=== PATIENT | female | born 1970 | race Caucasian/White ===

== ENCOUNTER 2019-01-17 00:20 | Emergency (ER) | payer OTHER, MEDICAID ==
[~2019-01-17] VITALS: Ht 162.6 cm; Wt 56.2 kg
[2019-01-17] MEDS ORDERED: MORPHINE SULFATE 4 MG/ML SYR/VIAL IV ONE (01:45)
[2019-01-17] MEDS ORDERED: ONDANSETRON HCL 4 MG/2 ML VIAL IV ONE (01:45)
[2019-01-17 03:00] VITALS: BP 178/68
== END 2019-01-17 03:45 | disposition home or self-care (01) ==
LOC: EDBD 00:20 → ER 00:29
DX: G44.309 Post-traumatic headache, unspecified, not intractable (principal); Z88.0 Allergy status to penicillin
CPT/HCPCS: 70450; 72125; 96374; 96375; 99284; J2270; J2405

== ENCOUNTER 2024-08-19 19:45 | Emergency (ER) | payer OTHER, MEDICAID ==
[~2024-08-19] VITALS: Ht 160 cm; Wt 56.4 kg
[2024-08-19] MEDS: KETOROLAC TROMETH 60MG/2ML VIAL IM ONE (21:13)
[2024-08-19] MEDS: HYDROcodone-ACET 5/325MG TAB PO ONE (21:13)
[2024-08-19 21:19] VITALS: BP 156/82; PULSE 77; RESP 17; TEMP 98.7; O2SAT 97
--- NOTE | 2024-08-19 21:21 | DVH ---
EXAMINATIONS: 3 views of the left ankle 3 views of the left foot CLINICAL HISTORY: Trauma/twist COMPARISON: None Findings and impression: No grossly displaced fractures, dislocations or bony destructive changes are evident on the provided views. The ankle mortise appears relatively intact. Calcaneal spurring noted. If the patient has continued symptoms clinically suspicious for radiographically occult fracture, fol low-up radiographs could be obtained in 7-10 days time.
--- NOTE | 2024-08-19 21:29 | ED.PDOC ---
Musculoskeletal HPI Comments 54-year-old female who came to the emergency room for left ankle and foot pain. Patient was walking up the stairs earlier, when she accidentally twisted her left ankle/foot. Denies any other injuries. Noted swelling over the left ankle. Patient states she can not bear weight. Chief Complaint: Lower Extremity Time Seen by MD: 21:27 Reviewed Notes: Nurses Notes Allergies: Coded Allergies: Codeine (Verified Allergy, Unknown, 08/19/24) Penicillins (Verified Allergy, Unknown, 01/17/19) Information Source: Patient Mode of Arrival: Wheelchair Location: Left Extremity Location: Ankle, Foot Timing: Hours Severity: Mild Able to Move Extremity: Yes Bear Weight: Limited Pain: Moderate Hand Dominance: Right Mechanism: Twisting Circumstances: Accident Onset of Symptoms: After Trauma Symptoms: Swelling, Pain DVT Risk Factors: NONE Associated signs and symptoms: Ankle pain (Left) Past Medical History PAST MEDICAL HISTORY: Denies Surgical History: Denies all surgeries [employer] 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 Family History Family History: Reviewed,noncontributory to illness Social History Smoker: Non-Smoker Alcohol: Denies ETOH Use Drugs: Denies Drug Use Lives In: Home Constitutional: denies: chills, diaphoresis, fatigue, fever, malaise, sweats, weakness, others EENTM: denies: blurred vision, double vision, ear bleeding, ear discharge, ear drainage, ear pain, ear ringing, eye pain, eye redness, hearing loss, mouth pain, mouth swelling, nasal discharge, nose bleeding, nose congestion, nose pain, photophobia, tearing, throat pain, throat swelling, voice changes, others Respiratory: denies: cough, hemoptysis, orthopnea, SOB at rest, shortness of breath, SOB with excertion, stridor, wheezing, others Cardiovascular: denies: chest pain, dizzy spells, diaphoresis, Dyspnea on exertion, edema, irregular heart beat, left arm pain, lightheadedness, palpi tations, PND, syncope, others Gastrointestinal: denies: abdomen distended, abdominal pain, blood streaked bowels, constipated, diarrhea, dysphagia, difficulty swallowing, hematemesis, melena, nausea, poor appetite, poor fluid intake, rectal bleeding, rectal pain, vomiting, others Genitourinary: denies: abnormal vagina bleeding, burning, dyspareunia, dysuria, flank pain, frequency, hematuria, incontinence, pain, , vagina discharge, urgency, others Neurological: denies: dizziness, fainting, headache, left sided numbness, left sided weakness, numbness, paresthesia, pre-existing deficit, right sided numbness, right sided weakness, seizure, speech problems, tingling, tremors, weakness, others Musculoskeletal: reports: joint pain (Left ankle, left foot), joint swelling (Left ankle); denies: back pain, gout, muscle pain, muscle stiffness, neck pain, others Integumetry: denies: bruises, change in color, change in hair/nails, dryness, laceration, lesions, lumps, rash, wounds, others Allergic/Immunocompromised: denies: Difficulty Healing, Frequent Infections, Hives, Itching, others Hematologic/Lymphatic: denies: anemia, blood clots, easy bleeding, easy bruising, swollen glands, others Endocrine: denies: excessive hunger, excessive sweating, excessive thirst, excessive urination, flushing, intolerance to cold, intolerance to heat, unexplained weight gain, unexplained weight loss, others Psychiatric: denies: anxiety, bipolar disorder, depression, hopeless, panic disorder, schizophrenia, sleepless, suicidal, others Physical Exam General Appearance: Moderate Distress (Moderate distress due to left foot and left ankle pain concerns.), Normal HEENT: Normal ENT Inspection, Pharynx Normal, TMs Normal Neck: Full Range of Motion, Non-Tender, Normal, Normal Inspection Respiratory: Chest Non-Tender, Lungs Clear, No Accessory Muscle Use, No Respiratory Distress, Normal Breath Sounds Cardiovascular: No Edema, No JVD, No Murmur, No Gallop, Normal Peripheral Pulses, Regular Rate/Rhythm Breast Exam: Deferred Gastrointestinal: No Organomegaly, Non Tender, No Pulsatile Mass, Normal Bowel Sounds, Soft Genitalia: Deferred Pelvic: Deferred Rectal: Deferred Extremities: Normal range of motion, Other (Patient displays diffuse tenderness to palpation throughout the arch and lateral aspect of the left foot extending up into the lateral aspect of the left ankle. Lateral malleolar edema noted with moderate reduced range of motion. Distal neurovascularly intact.) Musculoskeletal : Apperance: Normal Neurologic: Alert, No Motor Deficits, Normal Affect, Normal Mood, No Sensory Deficits Cerebellar Function: Normal Reflexes: Normal Skin: Dry, Normal Color, Warm Lymphatic: No Adenopathy Was a procedure done? Was a procedure done?: No Differential Diagnosis EXT Differential Diagnosis: Fracture, Sprain, Dislocation, Contusion, Strain X-Ray, Labs, Meds, VS Vital Signs Date Time Temp Pulse Resp B/P (MAP) Pulse Ox O2 Delivery O2 Flow Rate FiO2 08/19/24 21:19 77 17 97 Room Air 08/19/24 21:19 98.7 77 18 156/82 (106) 97 98.7 08/19/24 20:05 98.2 90 18 161/92 (115) 99 98.2 Current Medications Medications (Trade) Dose Ordered Sig/Brigid Route Start Time Stop Time Status Last Admin Ketorolac Tromethamine (Toradol Injection) 30 mg ONCE ONCE IM 08/19/24 21:00 08/19/24 21:01 DC 08/19/24 21:13 PROCEDURE(s): LANKL - L ANKLE 3 VIEW EXAMINATIONS: 3 views of the left ankle 3 views of the left foot CLINICAL HISTORY: Trauma/twist COMPARISON: None Findings and impression: No grossly displaced fractures, dislocations or bony destructive changes are evident on the provided views. The ankle mortise appears relatively intact. Calcaneal spurring noted. If the patient has continued symptoms clinically suspicious for radiographically occult fracture, follow-up radiographs could be obtained in 7-10 days time. X-Ray, Labs, Meds, VS Comment All studies performed the ED were evaluated by me personally. Imaging studies of the ankle and foot were unremarkable for any acute fractures. Patient sustained an ankle sprain and foot contusion. Advised utilizing Jai wrap and crutches as long as it aid in the healing process. Pain medication as needed as well as ice therapy. Time of 1ST Reevaluation: 22:10 Reevaluation 1ST: Improved Consultation: PCP Patient Education/Counseling: Diagnosis, Treatment Family Education/Counseling: Diagnosis, Treatment, No Family Present Sepsis Recent Procedure: No On Antibiotic Therapy: No Respiratory Rate >20: No Heart Rate >90: No Temp<36 C (96.8 F) or >38.3 C: No SBP <90 or MAP <65 mmHG: No New Acute Mental Status Change: No Is the patient on CPAP, BIPAP,: No IV fluid given: No Departure 1 Departure Time of Disposition: 22:10 Impression: Primary Impression: Ankle sprain Additional Impression: Foot contusion Disposition: 01 HOME / SELF CARE / HOMELESS Condition: Stable Additional Instructions: Advised pain medication as needed for symptomatic relief as well as ice therapy. Patient should utilize the Jai wrap and crutches as long as it aid in the healing process. e-Prescriptions Acetaminophen (Acetaminophen) 500 Mg Tab 500 MG PO Q4HP PRN, #30 TAB Prov: JOHNNA ROYAL PAC 08/19/24 Ibuprofen (Ibuprofen) 600 Mg Tab 1 TAB PO Q6HP PRN, #20 TAB Prov: JOHNNA ROYAL PAC 08/19/24 Discharged With: Self, Friend Critical Care Note Critical Care Time?: No Stability Stability form required: No Heart Score Heart Score: Heart Score Response (Comments) Value History N/A 0 EKG N/A 0 Age N/A 0 Risk Factors N/A 0 Troponin N/A 0 Total 0 I personally scribed for JOHNNA ROYAL PAC ([email or web address]) on 08/19/24 at 21:29. Electronically submitted by Akira Montenegro ([email or web address]). JOHNNA ROYAL PAC Aug 19, 2024 21:29
[2024-08-19] MEDS ORDERED: IBUP-1454 PO (22:11)
[2024-08-19] MEDS ORDERED: ACET500T58 PO (22:11)
== END 2024-08-19 22:27 | disposition home or self-care (01) ==
LOC: ER 19:45
DX: S93.492A Sprain of other ligament of left ankle, initial encounter (principal); S90.32XA Contusion of left foot, initial encounter; X50.1XXA Overexertion from prolonged static or awkward postures, initial encounter; Y93.01 Activity, walking, marching and hiking; Y92.89 Other specified places as the place of occurrence of the external cause; Y99.8 Other external cause status; Z88.0 Allergy status to penicillin; Z88.5 Allergy status to narcotic agent
CPT/HCPCS: 73610; 73630; 96372; 99284; J1885